=== PATIENT | male | born 1960 | race Caucasian/White ===

== ENCOUNTER 2017-05-29 13:13 | Emergency (ER) | payer OTHER ==
[2017-05-29 13:21] VITALS: BP 135/92; PULSE 105; TEMP 98.3; BMI 35.5
[2017-05-29] MEDS ORDERED: KETOROLAC TROMETHAMINE 60 MG/2 ML VIAL IM ONE (13:57)
[2017-05-29] MEDS ORDERED: KETOROLAC TROMETHAMINE 60 MG/2 ML VIAL ONE (14:00)
--- NOTE | 2017-05-29 14:06 | PDOC ---
History of Present Illness - General Chief Complaint: Pain Stated Complaint: PAIN Time Seen by Provider: 05/29/17 13:45 History Source: Patient Exam Limitations: No Limitations - History of Present Illness Initial Comments: 05/29/17 14:01 56 yr male history of DM, HTN, high cholesterol with low back pain that is now radiating to his left buttock and down the leg. 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 Pt denies urinary or bowel dysfunction, neg saddle anesthesia. Past History - Past Medical History Allergies/Adverse Reactions: Allergies Allergy/AdvReac Type Severity Reaction Status Date / Time No Known Allergies Allergy Verified 05/29/17 13:21 Home Medications: Ambulatory Orders Metformin HCl [Metformin HCl ER] 1,000 mg PO ASDIR 05/29/17 Methylprednisolone [Medrol Dose Jalen] 4 mg PO ASDIR #21 tablet 05/29/17 Diabetes: Yes HTN: Yes - Suicide/Smoking/Psychosocial Hx Smoking History: Never smoked Have you smoked in the past 12 months: No Information on smoking cessation initiated: No Hx Alcohol Use: No Drug/Substance Use Hx: No Substance Use Type: None Review of Systems - Review of Systems Able to Perform ROS?: Yes Is the patient limited Uzbek proficient: No Constitutional: No: Symptoms Reported HEENTM: No: Symptoms Reported Respiratory: No: Symptoms reported Cardiac (ROS): No: Symptoms Reported ABD/GI: No: Symptoms Reported : No: Symptoms Reported Musculoskeletal: Yes: See HPI, Back Pain Integumentary: No: Symptoms Reported Neurological: No: Symptoms reported Endocrine: No: Symptoms Reported *Physical Exam - Vital Signs Last Vital Signs Temp Pulse Resp BP Pulse Ox 98.3 F 105 H 18 135/92 100 05/29/17 13:19 05/29/17 13:19 05/29/17 13:19 05/29/17 13:19 05/29/17 13:19 - Physical Exam General Appearance: Yes: Nourished, Appropriately Dressed HEENT: positive: EOMI, BENJA Respiratory/Chest: positive: Lungs Clear, Normal Breath Sounds Cardiovascular: positive: Regular Rhythm, Regular Rate Gastrointestinal/Abdominal: positive: Normal Bowel Sounds, Soft Musculoskeletal: positive: Normal Inspection, Other (left buttock ttp at sciatic nerve). negative: CVA Tenderness, CVA Tenderness (R), CVA Tenderness (L ), Muscle Spasm, Vertebral Tenderness Extremity: positive: Normal Capillary Refill, Normal Inspection, Normal Range of Motion, Other (neg numbness or tingling, SLR positive left side ). negative : Swelling, Calf Tenderness, Erythema, Inflammation Integumentary: positive: Normal Color, Dry, Warm Neurologic: positive: Fully Oriented, Alert, Normal Mood/Affect, Normal Response , Motor Strength 5/5 ED Treatment Course - RADIOLOGY Radiology Studies Ordered: Category Date Time Status SPINE-LUMBAR ONLY [RAD] Stat Radiology 05/29/17 14:00 Ordered Progress Note - Progress Note Progress Note: pt improved after toradol is ambulatory steady gait, brisk gait. pt aware that he needs to check his blood sugar often as he has agreed to taking steroids stating NSAIDS and tylenol are not helping him at present . Medical Decision Making - Medical Decision Making 05/29/17 14:10 cc: pain to low back and left buttock radiates down the leg, pt states worse with driving and when getting up from sit to stand position denies urine or bowel dysfunction denies leg numbness or saddle anesthesia pt states he had negative doppler to r/o DVT of his left leg last week at [facility]. Pt states his PMD is arranging for him to have a lumbar MRI pt is taking ibuprofen without any relief. will give toradol, lumbar spine xray pt is ambulatory no acute distress stable vital signs *DC/Admit/Observation/Transfer Diagnosis at time of Disposition: Sciatica of left side - Discharge Dispostion Disposition: HOME Condition at time of disposition: Good - Prescriptions Prescriptions: Methylprednisolone [Medrol Dose Jalen] 4 mg PO ASDIR #21 tablet - Referrals Referrals: Mary Mukherjee MD [Primary Care Provider] - Julio Wise MD [Staff Physician] - - Patient Instructions Additional Instructions: take the medrol dose pack as directed avoid long periods of driving and sitting as this can make symptoms worse apply warm compress to lower back every 3hrs for 20 minutes follow with the orthopedist for follow up monitor your blood sugar at home as the steroids can raise your blood sugar return to ER for any worsening symptoms
== END 2017-05-29 14:54 | disposition home or self-care (01) ==
LOC: JERFT 13:13
PROC: 3E0233Z Introduction of Anti-inflammatory into Muscle, Percutaneous Approach (ICD-10-PCS; principal; 2017-05-29)
DX: M54.42 Lumbago with sciatica, left side (principal); I10 Essential (primary) hypertension; E11.9 Type 2 diabetes mellitus without complications; Z79.84 Long term (current) use of oral hypoglycemic drugs; E78.00 Pure hypercholesterolemia, unspecified
CPT/HCPCS: 72100-TC; 96372; 99281-25